=== PATIENT | female | born 1950 | race Caucasian/White ===

== ENCOUNTER 2017-02-14 05:47 | Day surgery (SDC) | payer MEDICARE ==
[~2017-02-14] VITALS: Ht 165.1 cm; Wt 63.0 kg
[~2017-02-14 05:47] MED LIST: FEXO180T72 PO; LOSA1TAB16 PO
[2017-02-14] MEDS ORDERED: LACTATED RINGERS 1,000 ML IV SCH ×2 (06:11→10:01)
[2017-02-14] MEDS ORDERED: BUPIVACAINE/PF 0.25% ONE ×2 (06:52→07:02)
[2017-02-14] MEDS ORDERED: EPINEPHRINE 1 MG/ML, 1ML ONE (06:53)
[2017-02-14] MEDS ORDERED: FLUORESCEIN SODIUM 500 MG/5 ML ONE (06:53)
[2017-02-14] MEDS ORDERED: NEOMY/POLYMYXIN B GU IRR. 1 ML IRRIG ONE (06:53)
[2017-02-14] MEDS ORDERED: THROMBIN 5,000 UNIT VIAL TP ONE ×2 (06:53→09:34)
[2017-02-14] MEDS ORDERED: ROCURONIUM 10 MG/ML ONE (06:58)
[2017-02-14] MEDS ORDERED: PROPOFOL 10 MG/ML, 20ML ONE (06:58)
[2017-02-14] MEDS ORDERED: NEOSTIGMINE 1 MG/ML, 10ML ONE (06:58)
[2017-02-14] MEDS ORDERED: ONDANSETRON 2MG/ML, 2ML ONE (06:58)
[2017-02-14] MEDS ORDERED: GLYCOPYRROLATE 0.2MG/1ML, 5ML ONE (06:58)
[2017-02-14] MEDS ORDERED: SUCCINYLCHOLINE 20 MG/ML, 10ML ONE (06:58)
[2017-02-14] MEDS ORDERED: CEFAZOLIN 1,000 MG ONE (06:58)
[2017-02-14] MEDS ORDERED: DEXAMETHASONE 4 MG/ML, 1ML ONE (06:58)
[2017-02-14] MEDS ORDERED: LIDOCAINE GEL 2%, 5ML ONE (06:59)
[2017-02-14] MEDS ORDERED: FENTANYL PF 100 MCG/2ML ONE ×3 (06:59→10:17)
[2017-02-14] MEDS ORDERED: LIDOCAINE-MPF 2% ,5ML ONE (06:59)
[2017-02-14] MEDS ORDERED: MIDAZOLAM 1 MG/ML, 2ML ONE (07:00)
[2017-02-14] MEDS ORDERED: KETOROLAC 30 MG/1 ML ONE (07:45)
[2017-02-14] MEDS ORDERED: LABETALOL 5MG/ML, 20ML ONE (08:04)
[2017-02-14] MEDS ORDERED: PROMETHAZINE 25 MG/ML, 1ML IV PRN (08:30)
[2017-02-14] MEDS ORDERED: ONDANSETRON 2MG/ML, 2ML IVPush PRN ×2 (08:30→10:30)
[2017-02-14] MEDS ORDERED: hydrALAzine 20 MG/ML, 1ML IV PRN (08:30)
[2017-02-14] MEDS ORDERED: MIDAZOLAM 1 MG/ML, 2ML IV PRN (08:30)
[2017-02-14] MEDS ORDERED: ALBUTEROL/IPRATROPIUM 2.5MG/0.5MG, 3 ML NPPB PRN (08:30)
[2017-02-14] MEDS ORDERED: DIAZEPAM 5 MG/ML, 2ML IVPush PRN (08:30)
[2017-02-14] MEDS ORDERED: LABETALOL 5MG/ML, 20ML IV PRN (08:30)
[2017-02-14] MEDS ORDERED: METOCLOPRAMIDE 5 MG/ML, 2ML IV PRN (08:30)
[2017-02-14] MEDS ORDERED: OXYcodone 5 MG/5 ML ORAL.SOL UDC PO PRN (08:30)
[2017-02-14] MEDS ORDERED: LORazepam 2 MG/ML, 1ML IVPush PRN (08:30)
[2017-02-14] MEDS ORDERED: HYDROmorphone 1 MG/ML, 1ML IV PRN (08:30)
[2017-02-14] MEDS ORDERED: ACETAMINOPHEN 325 MG TABLET PO PRN (08:30)
[2017-02-14] MEDS ORDERED: MEPERIDINE/PF 25MG/0.5ML IVPush PRN (08:30)
[2017-02-14] MEDS ORDERED: HYDROmorphone 2 MG/ML, 1ML ONE (09:13)
[2017-02-14] MEDS ORDERED: ACETAMINOPHEN 650 MG/20.3 ML UDC ONE (10:13)
[2017-02-14] MEDS ORDERED: OXYcodone 5 MG/5 ML ORAL.SOL UDC ONE (10:14)
[2017-02-14] MEDS: FENTANYL PF 100 MCG/2ML IV PRN ×2 (10:19→10:35)
[2017-02-14] MEDS ORDERED: OXYcodone/APAP 5/325MG TABLET PO PRN (10:30)
[2017-02-14] MEDS ORDERED: PROMETHAZINE 25 MG SUPP PR ONE (10:30)
[2017-02-14] MEDS ORDERED: IBUPROFEN 600 MG TABLET PO PRN (10:30)
== END 2017-02-14 18:20 ==
LOC: OUT 05:47
PROVIDERS: ATTEND Obstetrics & Gynecology Female Pelvic Medicine and Reconstructive Surgery
DX: N81.4 Uterovaginal prolapse, unspecified (principal); F17.210 Nicotine dependence, cigarettes, uncomplicated; N81.10 Cystocele, unspecified; R32 Unspecified urinary incontinence; Z90.710 Acquired absence of both cervix and uterus; Z98.890 Other specified postprocedural states; I10 Essential (primary) hypertension
CPT/HCPCS: 57288; 57425; C1771; C1781; J0171; J0330; J0690; J1100; J1170; J1885; J2250; J2405; J2704; J2710; J3010; J3490; J7120